=== PATIENT | male | born 1995 | race African-American/Black ===

== ENCOUNTER 2020-11-01 19:00 | Emergency (ER) | payer SELFPAY ==
[~2020-11-01] VITALS: Ht 175.3 cm; Wt 59.0 kg
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
--- NOTE | 2020-11-01 19:13 | NUR ---
PD AT BEDSIDE TALKING TO PATIENT.
--- NOTE | 2020-11-01 19:15 | NUR ---
JODIEP PA AT BEDSIDE FOR EVAL.
[2020-11-01] MEDS ORDERED: ACETAMINOPHEN 325 MG TABLET PO ONE (19:30)
[2020-11-01] MEDS ORDERED: ACETAMINOPHEN 325 MG TABLET ONE (19:47)
[2020-11-01] MEDS ORDERED: IBUP-1955 PO (21:20)
[2020-11-01] MEDS ORDERED: ACET-907 PO (21:20)
[2020-11-01] MEDS ORDERED: AMOX-430 PO (21:20)
[2020-11-01] MEDS ORDERED: TDAP [DIPH/PERTUSSIS/TET] 0.5 ML VIAL IM ONE ×2 (21:27→21:30)
[2020-11-01] MEDS ORDERED: AMOX/CLAVULANATE 875 MG TABLET ONE (21:47)
--- NOTE | 2020-11-01 21:50 | NUR ---
Patient discharged to home in stable condition. Written and verbal after care instructions given. Patient verbalizes understanding of instruction.Pt ambulatory with a steady gait
[2020-11-01 21:52] VITALS: BP 130/70
[2020-11-01] MEDS ORDERED: AMOX/CLAVULANATE 875 MG TABLET PO ONE (22:00)
== END 2020-11-01 21:50 | disposition home or self-care (01) ==
LOC: ER 19:03
DX: S02.2XXA Fracture of nasal bones, initial encounter for closed fracture (principal); S02.40CA Maxillary fracture, right side, initial encounter for closed fracture; Z79.899 Other long term (current) drug therapy; Y04.0XXA Assault by unarmed brawl or fight, initial encounter; Y93.89 Activity, other specified; Y92.89 Other specified places as the place of occurrence of the external cause; Y99.8 Other external cause status
CPT/HCPCS: 70450-TC; 70486-TC; 90715